=== PATIENT | female | born 1965 | race Caucasian/White ===

== ENCOUNTER 2017-12-21 13:49 | Outpatient (CLI) | payer OTHER | END 2017-12-21 13:50 | disposition home or self-care (01) | LOC: BICRAD 13:49 | PROVIDERS: ATTEND Physician Assistant | DX: M54.9 Dorsalgia, unspecified (principal); M47.894 Other spondylosis, thoracic region; M46.86 Other specified inflammatory spondylopathies, lumbar region; W19.XXXA Unspecified fall, initial encounter | CPT/HCPCS: 72050; 72070; 72100 ==

== ENCOUNTER 2018-06-11 16:10 | Inpatient (IN) | payer SELFPAY ==
--- NOTE | 2018-06-11 17:00 | RAD ---
UPRIGHT PORTABLE CHEST ONE VIEW: 06/11/18 HISTORY: 53-year-old female with history of sepsis and altered mental status. COMPARISON: 06/08/18. FINDINGS: Surgical clips in the left axilla. Monitor leads overlie the chest. Heart size is normal. The lungs a re clear. IMPRESSION: No acute intrathoracic disease. POS: [facility]
[2018-06-11 17:41] LABS: Base Excess-Venous -1.8 mmol/L (0 (+/- 2.5)); Bicarbonate (HCO3v) 22.2 mmol/L (1.0-85.0); CO2 Tension (PvCO2) 34.8 mmHg (41.0-51.0); Calcium, Ionized 1.17 mmol/L (1.12-1.32); Hemoglobin - Calc 13.6 g/dL (12.0-18.0); O2 Tension (PvO2) 96.4 mmHg (35.0-45.0); T. Carbon Dioxide 23.3 mmol/L (1.0-85.0); pH (Venous) 7.412 (7.35-7.45); vO2 Saturation-calc 97.6 % (94-98)
[2018-06-11 17:46] LABS: Anion Gap 16 mmol/L (10-20); BUN (Urea Nitrogen) 14 mg/dL (9.8-20.1); Calc. Creatinine Clearance 0 mL/min (70-130); Calcium 9.2 mg/dL (7.8-10.44); Carbon Dioxide 21 mmol/L (22-29); Chloride 108 mmol/L (98-107); Estimated GFR-MDRD 76; Glucose 176 mg/dL (70-105); Magnesium 2.4 mg/dL (1.6-2.6); Phosphorus 2.9 mg/dL (2.3-4.7); Sodium 141 mmol/L (136-145)
[2018-06-11 17:49] LABS: Acetaminophen Less than 6.0 mcg/mL (10.0-30.0); Alcohol Less than 10 mg/dL (Less than 10); Salicylate Less than 8.0 mg/dL (15.0-30.0)
[2018-06-11 17:54] LABS: CKMB 0.7 ng/mL (0-6.6); Troponin I Less than 0.010 ng/mL (< 0.028)
[2018-06-11] MEDS ORDERED: Lorazepam 2 MG/ML VIAL ONE (18:24)
[2018-06-11 19:07] LABS: Color Of CSF Supernatant COLORLESS (Colorless); Tube # 2; Unspun CSF Color PINK (Colorless)
[2018-06-11 19:10] LABS: CSF Source CSF; Clarity Hazy (Clear); RBC Count - Manual 980 /cumm (None Seen); Tube # 4; WBC/NonHematics Count - Manual 3 /cumm (0-5)
[2018-06-11 19:20] LABS: CSF, Glucose 130 mg/dl (40-70); CSF, Protein 27 mg/dL (15-40)
[2018-06-11 19:31] LABS: CSF Source CSF; Clarity Hazy (Clear); RBC Count - Manual 2725 /cumm (None Seen); Tube # 1; WBC/NonHematics Count - Manual 3 /cumm (0-5)
[2018-06-11 21:21] LABS: Troponin I Less than 0.010 ng/mL (< 0.028)
[2018-06-11] MEDS ORDERED: Fleet Enema 133 ML BOT PR PRN (23:47)
[2018-06-11] MEDS ORDERED: Bisacodyl 5 MG TAB PO PRN (23:47)
[2018-06-11] MEDS ORDERED: Acetaminophen 325 MG TAB PO PRN (23:47)
[2018-06-11] MEDS ORDERED: Ondansetron HCl/PF 4 MG/2 ML Vial IVP PRN (23:47)
[2018-06-11] MEDS ORDERED: Senokot 8.6 MG TAB PO PRN (23:47)
[2018-06-11] MEDS ORDERED: HYDROcodone/Acetaminophen 5/325 mg Tablet PO PRN (23:47)
[2018-06-11] MEDS ORDERED: Dextrose 5% in Water 1,000 ML IV PRN (23:52)
[2018-06-11] MEDS ORDERED: HumaLOG 300 UNITS/3 ML VIAL SC PRN (23:52)
[2018-06-11] MEDS ORDERED: Dextrose 50% Abboject 50 ML SYRINGE SLOW IVP PRN (23:52)
[2018-06-11 23:59] LABS: Troponin I Less than 0.010 ng/mL (< 0.028)
[2018-06-12] MEDS ORDERED: Ampicillin 125 MG/5 ML VIAL SLOW IVP SCH (00:15)
[2018-06-12 01:19] VITALS: BMI 32.2
[2018-06-12] MEDS ORDERED: cefTRIAXone\\ROCEPHIN 2 GM in Sodium Chloride 0.9% 100 ML IVPB SCH (02:00)
[2018-06-12] MEDS: Ampicillin 2 GM in Sodium Chloride 0.9% 100 ML IVPB SCH ×6 (02:31→20:48)
[2018-06-12] MEDS: Sodium Chloride 0.9% 1,000 ML IV SCH ×2 (02:32→11:29)
[2018-06-12 02:48] LABS: Troponin I Less than 0.010 ng/mL (< 0.028)
[2018-06-12 06:11] LABS: ALT (SGPT) 8 U/L (8-55); AST (SGOT) 7 U/L (5-34); Alkaline Phosphatase 64 U/L (40-150); Anion Gap 15 mmol/L (10-20); BUN (Urea Nitrogen) 14 mg/dL (9.8-20.1); Bilirubin, Total 0.3 mg/dL (0.2-1.2); Calc. Creatinine Clearance 120 mL/min (70-130); Carbon Dioxide 21 mmol/L (22-29); Chloride 108 mmol/L (98-107); Estimated GFR-MDRD 80; Globulin 2.5 g/dL (2.4-3.5); Glucose 124 mg/dL (70-105); Potassium 3.3 mmol/L (3.5-5.1); Protein, Total 6.5 g/dL (6.0-8.3); Sodium 141 mmol/L (136-145)
[2018-06-12] MEDS: cefTRIAXone\\ROCEPHIN 2 GM in Sodium Chloride 0.9% 100 ML IVPB SCH ×3 (06:24→20:47)
[2018-06-12 06:31] LABS: #Eosinphils 0.1 thou/uL (0.0-0.7); #Lymphocytes 2.4 thou/uL (1.20-3.40); #Monocytes 0.4 thou/uL (0.11-0.59); #Neutrophils 5.1 thou/uL (1.40-6.50); %Basophils 0.4 % (0.0-1.0); %Eosinophils 0.9 % (0.0-10.0); %Lymphocytes 29.5 % (21.0-51.0); %Monocytes 5.3 % (0.0-10.0); %Neutrophils 63.8 % (42.0-75.0); Mean Corpuscular HGB CONC 34.7 g/dL (32.0-36.0); Mean Corpuscular Hemoglobin 30.9 pg (27.0-31.0); Mean Platelet Volume 6.3 fL (7.4-10.4); Platelet Count 210 thou/uL (130-400); RBC Distribution Width 12.2 % (11.5-14.5); Red Blood Cell (RBC) Count 3.89 mill/uL (4.20-5.40)
--- NOTE | 2018-06-12 08:07 | PDOC.EVN ---
Event Note - Event Note Event Note: h&p [id number]
--- NOTE | 2018-06-12 08:55 | HP ---
DATE OF ADMISSION: 06/11/2018 PRIMARY CARE PHYSICIAN: The patient does not have a PCP. CHIEF COMPLAINT: Decreased mental status. HISTORY OF PRESENT ILLNESS: This is a 53-year-old female with a known history of cataracts, hysterectomy, breast cancer, who presented initially with a chief complaint of altered mental status. Please note that the patient was brought in by her family initially to [facility]. At the time of my evaluation in our emergency department, the patient's mentation has actually improved and she is able to give a different history of present illness from that for which she was brought in for. It appears that the patient was initially brought in for decreased mental status and obtundation. At the time of my evaluation, the patient states that she has been having intermittent episodes of syncope over the last 5 days. She has also been complaining of a headache described as a front to back throbbing headache without any photophobia, but with some floaters are noted in her vision. She has been noticing some belly distention, lightheadedness, blurred vision, and discomfort in her left chest wall like she was "punched." She also endorses tenderness throughout her anterior chest wall and abdomen. REVIEW OF SYSTEMS: As per HPI. Constitutional: Subjective fevers and chills. No significant weight loss or gain. HEENT: Blurred vision as noted above. Lightheadedness and syncopal episodes over the last 5 days, described as feeling like she is about to black out with some possible episodes of blacking out. Cardiovascular: As per above. Respiratory: Denies any shortness of breath, cough, congestion, upper respiratory infection. Gastrointestinal: No nausea, no vomiting. Abdominal pain is generalized and it occurs only with pressure to her abdomen. Genitourinary: Denies any dysuria, changes in urinary frequency, quality, or quantity. Musculoskeletal: Generalized chronic back pain, but without any new arthralgias or myalgias. PAST MEDICAL HISTORY: As per above, significant for type 2 diabetes, hypothyroidism, hyperlipidemia, hypertension, breast cancer status post bilateral mastectomy, ankylosing spondylitis, chronic back pain, chronic fractures to her back including the lumbar spine and sacrum. PAST SURGICAL HISTORY: 1. Status post hysterectomy. 2. Status post bilateral cataract surgery. HOME MEDICATIONS: Please see the EMR for full details. The patient's list currently includes the following docusate 1 cap p.o. b.i.d., metformin 500 mg p.o. b.i.d., pravastatin 80 mg p.o. at bedtime, nortriptyline 50 mg p.o. at bedtime, prednisone 50 mg p.o. q.a.m., aspirin 81 mg p.o. q.a.m., levothyroxine 100 mcg p.o. daily, lisinopril 10 mg p.o. q.a.m., gabapentin 2 caps p.o. in the evening and 1 cap p.o. q.a.m. ALLERGIES: Include BEE VENOM PROTEIN and IODINE. FAMILY HISTORY: The patient does not endorse a known family history of neurological disease. SOCIAL HISTORY: Patient denies any alcohol, tobacco or illicit drug use. However, the patient does have a UDS that is positive for THC. 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 There are no other individuals in the home. Patient has an outdoor dog and cat that have not been ill recently. PHYSICAL EXAMINATION: VITAL SIGNS: Stable. Temperature of 98.6, respirations of 18, satting 98% on room air, heart rate of 80, blood pressure 135/68. GENERAL: The patient is awake, conversant, in no acute distress, lying in the hospital bed. She has a marginal historian who gives a very disjointed history as noted above. HEENT: Normocephalic, atraumatic. Equal ocular motions are intact. Slightly dry mucous membranes. CARDIOVASCULAR: S1, S2. No murmurs, rubs, or gallops. Pulses 2+ bilateral upper extremities, no pitting pedal edema. RESPIRATORY: Reasonable air movement. No conversational dyspnea. No wheezes, rales, or rhonchi. Marginal air movement grossly clear to auscultation bilaterally. ABDOMEN: Positive bowel sounds, soft, nontender to palpation. MUSCULOSKELETAL: Able to move all 4 extremities. IMAGING: On 06/11/2018, chest x-ray impression: "No acute intrathoracic disease." LABORATORY DATA: WBC 8.0, hemoglobin 12.0, hematocrit 34.6, platelets 210. Sodium 141, potassium 4.0, chloride 108, bicarbonate 21, BUN 14, creatinine 0.79 , glucose 176. Lactic acid 2.4. Initially, calcium 9.2, phosphorus 2.9, magnesium 2.4, ammonia 31. Troponin less than 0.01. TSH 1.3451. Lumbar puncture CSF color is pink, 3 WBCs, 2725 RBCs, 130 of glucose, 27 of protein. Toxicology negative for salicylates, acetaminophen, or alcohol. ASSESSMENT AND PLAN: This is a 53-year-old female presenting with a chief complaint of altered mental status. Unfortunately, the patient is a very poor historian. It is difficult to actually elucidate what her active issues are. Presumably her mentation and her disjointed history giving are new in part of her complaint of altered mental status. It appears that there is concern for possibility of meningitis in an outlying facility, as the patient was started on vancomycin and Rocephin for this. At this point in time, I have difficulty completely ruling this out. We will continue on empiric antibiotics. I do not know if her lumbar puncture was completed prior to or after administration of antibiotics. We will await her lumbar puncture culture results. Patient's mentation does appear to be somewhat better compared to prior description and her actual presentation in our hospital. In addition for further evaluation, we will obtain an MRI of the brain without contrast as well for further evaluation of the patient's mentation. Complaint of syncope. Please see the discussion above. We will also check orthostatic vital signs. Check echocardiogram, bilateral carotid Dopplers as well. Tenderness to palpation across the chest wall and abdominal wall. CT of the abdomen and pelvis to further differentiate if there is any underlying structural etiology for the pain and discomfort. It is not clear why this is ongoing. Recommend checking a CRP and ESR as well for consideration of inflammatory processes such as myositis type syndrome. Type 2 diabetes. Continue to monitor the patient's glucose. Sliding scale insulin if needed. Hypothyroidism. Continue with thyroid replacement therapy. Hyperlipidemia, stable. Continue the patient on home statin. Hypertension, stable. Continue the patient on her home antihypertensive regimen. Ankylosing spondylitis with chronic back pain, lumbar spinal fracture and sacral fracture and chronic arthritis: Continue the patient on her home pain management regimen. Diet: As tolerated. Activity: As tolerated. Deep venous thrombosis prophylaxis with enoxaparin. MTDD
[2018-06-12] MEDS: Enoxaparin Sodium 30 MG/0.3 ML SYRINGE SC SCH (09:40)
[2018-06-12] MEDS: Famotidine/PF 20 mg/2ml Vial SLOW IVP SCH ×2 (09:40→20:48)
[2018-06-12] MEDS: Docusate 100 MG CAP PO SCH ×2 (09:40→20:48)
--- NOTE | 2018-06-12 10:07 | ULT ---
BILATERAL CAROTID DUPLEX ULTRASOUND: HISTORY: Syncope. TECHNIQUE: Hendricks scale ultrasound with color flow and spectral Doppler imaging of the extracranial carotid artery systems was performed bilaterally. FINDINGS: There is plaque formation on the right. The peak systolic velocity in the right ICA measures 103 cm/s with an end-diastolic velocity of 33 cm /s and a systolic ratio of 1.16. The peak systolic velocity in the left ICA measures 95 cm/s with an end-diastolic velocity of 30 cm/s and a systolic ratio of 1.07. Flow in both vertebral arteries remains antegrade. IMPRESSION: No evidence of hemodynamically significant stenosis. POS: [facility]
[2018-06-12 10:15] LABS: Bacteria/HPF None Seen HPF (None Seen); Hyaline Casts/LPF 0-3 HYALINE CAST LPF (0-3 Hyaline); Pathc Cast-AUWi Flag 0.14 (0-2.49); Squamous Epithelial None Seen HPF (0-3)
--- NOTE | 2018-06-12 12:41 | PDOC.PN ---
- Subjective Encounter Start Date: 06/12/18 Encounter Start Time: 12:39 Ms. Bryant was seen today in follow-up. she is awake and alert. She knows she is in the hospital and why. She was not able to tell me the year month or date but says " it's hot". Strangely she was able to correct her however, when he was going over the details of her recent admission. She interrupted and said she had a Steroid shot at the [facility]. - Objective Resuscitation Status: Resuscitation Status FULL:Full Resuscitation MAR Reviewed: Yes Vital Signs & Weight: Vital Signs (12 hours) Temp Pulse Resp BP Pulse Ox 06/12/18 11:21 98.5 F 84 20 140/71 96 06/12/18 07:55 98.9 F 83 20 131/64 99 06/12/18 04:00 98.6 F 80 18 135/68 98 Weight Weight 193 lb 9.6 oz I&O: 06/11/18 06/12/18 06/13/18 06:59 06:59 06:59 Intake Total 950 Output Total 650 Balance 300 Result Diagrams: 06/12/18 02:14 06/12/18 02:14 Additional Labs: Accuchecks 06/12/18 06/11/18 06:38 16:27 POC Glucose 107 197 H Phys Exam - Physical Examination HEENT: PERRLA Respiratory: no rales, no rhonchi, wheezing present + mild bilateral expiratory wheeze, Cardiovascular: RRR, no significant murmur, no rub Gastrointestinal: soft, non-tender, positive bowel sounds Musculoskeletal: no edema no rashes Dx/Plan (1) Altered mental status Code(s): R41.82 - ALTERED MENTAL STATUS, UNSPECIFIED Status: Acute (2) Hypertension Code(s): I10 - ESSENTIAL (PRIMARY) HYPERTENSION Status: Chronic (3) Diabetes mellitus type 2 in obese Code(s): E11.69 - TYPE 2 DIABETES MELLITUS WITH OTHER SPECIFIED COMPLICATION; E66.9 - OBESITY, UNSPECIFIED Status: Chronic (4) Dyslipidemia Code(s): E78.5 - HYPERLIPIDEMIA, UNSPECIFIED Status: Chronic (5) Hypothyroidism Code(s): E03.9 - HYPOTHYROIDISM, UNSPECIFIED Status: Chronic - Plan * Altered Mental status- Unknown etiology, she does not appear to be encephalopathic, she is able to converse clearly with me, but she reports memory loss. She does no at all appear to have bacterial meningitis, and cultures are negative so far. She does not have fever, or signs of meningismus. Will follow-up on the MRI results, Carotid dopplers were negative * Likely can discontinue antibiotics tomorrow. * Abdominal pain- again no clear etiology- CT scan results are pending * DM- blood glucose is stable * HTN- blood pressure is stable
--- NOTE | 2018-06-12 13:00 | CT ---
CT ABDOMEN AND PELVIS WITHOUT IV CONTRAST: Multiple axial tomograms obtained through the abdomen and pelvis without IV enhancement. Oral contra st was administered. INDICATION: Abdominal pain. FINDINGS: The lung bases are clear. Liver and spleen unremarkable. The spleen size is upper normal measured at 13 cm. Pancreas unremarkable. Adrenal glands normal. Kidneys unremarkable. No hydronephrosis or urinary tract calculus. The urinary bladder is contracte d and there is a Boss catheter in place. Small bowel loops are unremarkable. No evidence of small bowel dilatation or obstruction. Appendix is not identified. Stool and gas throughout the colon. Aorta is normal caliber. No adenopathy. IMPRESSION: 1. Borderline splenomegaly. 2. Prominent stool throughout the colon could represent constipation. 3. No acute process identified. POS: [facility]
--- NOTE | 2018-06-12 15:04 | MRI ---
MRI BRAIN WITHOUT CONTRAST: HISTORY: TIA, syncope. FINDINGS: Correlation is made with the CT brain of the previous day. FINDINGS: No restricted diffusion is seen. No evidence of infarct, hemorrhage, midline shift, or abnormal extr aaxial fluid collections is seen. The ventricular size is normal and the basilar cisterns patent. T here is mucosal disease in the paranasal sinuses. IMPRESSION: No evidence of acute intracranial process. POS: [facility]
[2018-06-13] MEDS: Ampicillin 2 GM in Sodium Chloride 0.9% 100 ML IVPB SCH ×3 (00:46→10:20)
[2018-06-13] MEDS: Sodium Chloride 0.9% 1,000 ML IV SCH ×2 (00:51→05:40)
[2018-06-13 05:46] LABS: #Eosinphils 0.4 thou/uL (0.0-0.7); #Lymphocytes 1.6 thou/uL (1.20-3.40); #Monocytes 0.4 thou/uL (0.11-0.59); #Neutrophils 3.9 thou/uL (1.40-6.50); %Basophils 0.6 % (0.0-1.0); %Eosinophils 6.3 % (0.0-10.0); %Lymphocytes 25.5 % (21.0-51.0); %Monocytes 5.7 % (0.0-10.0); Hemoglobin 12.2 g/dL (12.0-16.0); Mean Corpuscular HGB CONC 35.1 g/dL (32.0-36.0); Mean Corpuscular Hemoglobin 31.2 pg (27.0-31.0); Mean Corpuscular Volume 88.7 fL (78.0-98.0); Mean Platelet Volume 5.8 fL (7.4-10.4); Platelet Count 181 thou/uL (130-400); White Blood Cell (WBC) Count 6.4 thou/uL (4.8-10.8)
[2018-06-13 06:07] LABS: ALT (SGPT) 10 U/L (8-55); AST (SGOT) 8 U/L (5-34); Albumin 3.6 g/dL (3.5-5.0); Alkaline Phosphatase 62 U/L (40-150); Anion Gap 13 mmol/L (10-20); BUN (Urea Nitrogen) 7 mg/dL (9.8-20.1); Bilirubin, Total 0.3 mg/dL (0.2-1.2); Calc. Creatinine Clearance 118 mL/min (70-130); Calcium 8.3 mg/dL (7.8-10.44); Carbon Dioxide 24 mmol/L (22-29); Chloride 109 mmol/L (98-107); Estimated GFR-MDRD 79; Globulin 2.4 g/dL (2.4-3.5); Glucose 120 mg/dL (70-105); Potassium 3.6 mmol/L (3.5-5.1); Sodium 142 mmol/L (136-145)
[2018-06-13] MEDS: Enoxaparin Sodium 30 MG/0.3 ML SYRINGE SC SCH (08:58)
[2018-06-13] MEDS: cefTRIAXone\\ROCEPHIN 2 GM in Sodium Chloride 0.9% 100 ML IVPB SCH (08:58)
[2018-06-13] MEDS: Famotidine/PF 20 mg/2ml Vial SLOW IVP SCH (08:58)
[2018-06-13] MEDS: Docusate 100 MG CAP PO SCH (08:58)
--- NOTE | 2018-06-13 11:09 | PDOC.PN ---
- Subjective Encounter Start Date: 06/13/18 Encounter Start Time: 11:08 Ms. Bryant was seen today in follow-up. She is back to her baseline. She walked in the halls without any difficulty. - Objective Resuscitation Status: Resuscitation Status FULL:Full Resuscitation MAR Reviewed: Yes Vital Signs & Weight: Vital Signs (12 hours) Temp Pulse Resp BP BP Pulse Ox 06/13/18 08:58 99.5 F 73 20 98 06/13/18 07:48 99.5 F 73 20 170/72 H 98 06/13/18 03:48 98.4 F 77 16 137/66 99 06/12/18 23:43 98.6 F 78 16 152/72 H 97 Weight Admit Weight 193 lb 9.6 oz Weight 193 lb 9.6 oz I&O: 06/12/18 06/13/18 06/14/18 06:59 06:59 06:59 Intake Total 3541 Output Total 4400 Balance -859 Result Diagrams: 06/13/18 04:52 06/13/18 04:52 Additional Labs: Accuchecks 06/13/18 05:24 POC Glucose 129 H Phys Exam - Physical Examination HEENT: PERRLA Respiratory: no wheezing, no rales, no rhonchi, clear to auscultation bilateral Cardiovascular: RRR, no significant murmur, no rub Gastrointestinal: soft, non-tender, positive bowel sounds Musculoskeletal: no edema Dx/Plan (1) Altered mental status Code(s): R41.82 - ALTERED MENTAL STATUS, UNSPECIFIED Status: Acute (2) Hypertension Code(s): I10 - ESSENTIAL (PRIMARY) HYPERTENSION Status: Chronic (3) Diabetes mellitus type 2 in obese Code(s): E11.69 - TYPE 2 DIABETES MELLITUS WITH OTHER SPECIFIED COMPLICATION; E66.9 - OBESITY, UNSPECIFIED Status: Chronic (4) Dyslipidemia Code(s): E78.5 - HYPERLIPIDEMIA, UNSPECIFIED Status: Chronic (5) Hypothyroidism Code(s): E03.9 - HYPOTHYROIDISM, UNSPECIFIED Status: Chronic - Plan * Altered mental status- ? etiology * MRI, Echo, and CT abdomen are all essentially negative * Stable for discharge home.
[2018-06-13 12:07] VITALS: TEMP 99
[2018-06-13 12:11] VITALS: BP 182/86
--- NOTE | 2018-06-13 17:50 | DIS ---
DATE OF ADMISSION: 06/11/2018 DATE OF DISCHARGE: 06/13/2018 DISCHARGE DISPOSITION: Home. PRIMARY DISCHARGE DIAGNOSES: 1. Altered mental status, unknown etiology. 2. Diabetes mellitus, type 2. 3. Hypothyroidism. 4. Hypertension. 5. Dyslipidemia. 6. History of breast cancer status post mastectomy. 7. History of chronic low back pain. DISCHARGE MEDICATIONS: These are the same as that on admission and include pravastatin 80 mg at bedt sherwin, nortriptyline 50 mg at bedtime, metformin 500 mg twice a day, lisinopril 10 mg daily, levothyrox ine 100 mcg daily, Neurontin 100 mg in the morning and 2 in the evening, Colace 100 mg twice a day, a spirin 81 mg daily. PROCEDURES DONE DURING ADMISSION: The patient had an MRI of the brain which was negative for any acu te intracranial process. The patient had a CT scan of the abdomen and pelvis in which there was some borderline splenomegaly. There was prominent stool throughout the colon, which could be representat torrey of constipation, but no acute process was identified. She had bilateral carotid Dopplers, which were negative for any significant stenosis. She had an echocardiogram which the ejection fraction wa s estimated at 60%-65%, the left atrium was mildly dilated, some mild regurgitation in the mitral and tricuspid valves otherwise normal. CODE STATUS: FULL CODE. ALLERGIES: BEE VENOM and IODINE. HOSPITAL COURSE: Ms. Bryant is a pleasant 53-year-old female that presented to the hospital with alte red mental status. It appears that she had a waxing and waning confusion over the course of the last week. The full details of which are outlined in history and physical. The patient's who ga ve the history stated that it seemed to have happened after she had got stung by a bee and had given herself an EpiPen on past Thursday and then Thursday she had the start of this confusion. What was odd i s that in the room when I spoke with the patient, she initially stated she did not have much memory o f the event, but she was curious that as the was explaining things she would jump in and torri ect him on certain events. The following day she was completely back to baseline, ambulating in the halls without difficulty. She has been afebrile. She had had a lumbar puncture which was not consis tent with meningitis and her symptoms are also not consistent with meningitis. The culture was negat torrey at 24 hours. Therefore, she will be discharged home to have close followup in the outpatient set ting and monitor her for any recurrent trend.
== END 2018-06-13 12:27 | disposition home or self-care (01) | DRG 948 ==
LOC: ERS 16:10 → ERHOLD 20:47 → 2SE 06-12 00:03
PROVIDERS: ADMIT Internal Medicine; ATTEND Internal Medicine
PROC: 00JU3ZZ Inspection of Spinal Canal, Percutaneous Approach (ICD-10-PCS; principal; 2018-06-11)
DX: R41.82 Altered mental status, unspecified (principal); H26.9 Unspecified cataract; Z85.3 Personal history of malignant neoplasm of breast; E11.9 Type 2 diabetes mellitus without complications; E03.9 Hypothyroidism, unspecified; E78.5 Hyperlipidemia, unspecified; I10 Essential (primary) hypertension; G89.29 Other chronic pain; M54.9 Dorsalgia, unspecified; M19.90 Unspecified osteoarthritis, unspecified site
CPT/HCPCS: 36415; 36416; 62270; 70551; 71045; 74176; 80053; 80307; 81015; 82140; 82330; 82803; 82945; 83605; 83735; 84100; 84157; 84443; 85025; 86612; 86635; 86698; 86757; 87070; 87205; 87255; 89051; 93005; 93306; 93880; 96361; 96374; A4216; G8978-GP-CL; G8979-GP-CI; J0290; J0696; J1650; J2060; J2405; J3370; J7050; S0028

== ENCOUNTER 2020-07-04 12:43 | Observation (INO) | payer OTHER, SELFPAY ==
[2020-07-04 15:05] VITALS: BMI 33.0
[2020-07-04 16:08] LABS: Troponin I Less than 0.010 ng/mL (< 0.028)
--- NOTE | 2020-07-04 18:42 | PDOC.HHP ---
Hospitalist HPI - History of Present Illness syncope History of Present Illness: PCP: Ambrose The patient is a 55-year-old female past medical history significant for hypertension, neuropathy, sleep apnea, hypothyroidism, hyperlipidemia, and psych issues. Patient states that 4 days ago she was stung by a wasp and was seen in the emergency room. Since that time she has had multiple syncopal episodes. She states that she does not realize they are coming on but that she will stand up and her will see her get a blank look on her face and then he helps lower her to the ground. She also claims that they last anywhere from 2 to 5 minutes and when she wakes up she is confused from the episode. She does state that he noticed some small twitching during some of the episodes. Patient has history of syncopal episodes in the past. She states that a year ago the same thing was occurring and she was diagnosed with a "psychotic seizure". She was placed on Flexeril at that time to help her sleep. Thursday she passed out once, on Thursday she passed out 3 times, on Thursday she passed out twice, and today she has passed out once. When questioned patient states that she has been under increased stress lately. She was caring for her best friend who while on her watch a few weeks ago. Patient claims she has been compliant with her medications denies chest pain, shortness of breath, bladder changes. She does state she is having diarrhea directly after eating since Thursday, denies bloody stool. Patient also endorses a headache every day since the bee sting and does have dizziness when ambulating. Patient has a history of sleep apnea but does not use home CPAP at night. She s tates she had her last sleep study many years ago and they stated she did not need a CPAP machine but prescribed her a sleep medication. She does state that some nights she will wake up gasping for air. ED Course: The patient was seen at [facility] today, she had an EKG, chest x-ray, lab work, and brain CT. She was given aspirin 324 mg. Hospitalist ROS - Review of Systems Constitutional: reports: other (headache) Respiratory: denies: shortness of breath Cardiovascular: reports: other (Syncope). denies: chest pain Gastrointestinal: reports: diarrhea All other systems reviewed; all pertinent +/- noted in HPI/Subj - Medication Medications: Allergies: Bee and wasp stings, iodine Current medications: Metformin 500 mg p.o. twice a day Pravastatin 60 mg p.o. at bedtime Lisinopril 5 mg p.o. every morning Levothyroxine 100 mcg p.o. daily Gabapentin 100 mg in the morning Gabapentin 100 mg 2 capsules at noon at 1800 Flexeril 10 mg at night Aspirin 81 mg daily Hospitalist History - Past Medical History Source: patient Cardiac: reports: HTN, Hyperlipidemia Psych: reports: Anxiety, Depression, Other (history of "psychotic seizures") Musculoskeletal: reports: Chronic low back pain Endocrine: reports: Hypothyroidism Other Medical History: neuropathy, breast cancer - Past Surgical History Past Surgical History: reports: Hysterectomy - Family History Family History: reports: cardiac disorder, hypertension - Social History Smoking Status: Never smoker Alcohol: reports: None Drugs: reports: none Living Situation: With Family Occupation: [employer] Activity level: independent ambulation - Exam General Appearance: NAD, awake alert General - other findings: VS: 98.2, P-55, 18, 100% RA, 150/66 Eye: PERRL Neck: supple, no lymphadenopathy Heart: RRR, no murmur (murmur reported, however unable to auscultate one), no gallops, no rubs Respiratory: CTAB, no wheezes, no rales, no ronchi, normal chest expansion Gastrointestinal: soft, non-tender, non-distended, normal bowel sounds Extremities: no edema Neurological: cranial nerve grossly intact, no focal deficits Psychiatric: A&O x 3 Hospitalist Results - Labs Lab results: Troponin I Less than 0.010 ng/mL (< 0.028) 07/04/20 15:32 Laboratory Tests 07/04/20 07/04/20 07/04/20 11:22 11:22 11:22 WBC 8.3 Hgb 13.3 Hct 40.4 Sodium 140 Potassium 4.1 Creatinine 0.85 Estimated GFR (MDRD) 70 Glucose 136 H Troponin I Less than 0.010 07/04/20 15:32 WBC Hgb Hct Sodium Potassium Creatinine Estimated GFR (MDRD) Glucose Troponin I Less than 0.010 - EKG Interpretation EKG: NSR 65 - Radiology Interpretation Chest x-ray Status: image reviewed by me, report reviewed by me Additional Comment: No acute cardiopulmonary process. CT scan - head Status: report reviewed by me Additional Comment: No acute intracranial process. Hospitalist H&P A/P - Problem (1) Syncopal episodes Code(s): R55 - SYNCOPE AND COLLAPSE Status: Acute (2) Hypertension Code(s): I10 - ESSENTIAL (PRIMARY) HYPERTENSION Status: Chronic (3) Depression Code(s): F32.9 - MAJOR DEPRESSIVE DISORDER, SINGLE EPISODE, UNSPECIFIED Status: Chronic - Plan Plan: Multiple syncopal episodes Echo to be completed in a.m. Orthostatics to be obtained IV fluids UDS Hypertension Restart home medications when reconciled Monitor vital signs every 4 hours Depression and chronic pain Can restart home medications slowly, daughter put her at a higher risk for more syncopal episodes or falls GI and VTE prophylaxis in place CODE STATUS: Chemical code only Surrogate decision-maker: , Juan Bryant Discussed patient with Dr. Juarez
[2020-07-04] MEDS: Acetaminophen 325 MG TAB PO PRN (18:49)
[2020-07-04 19:14] LABS: Troponin I 0.016 ng/mL (< 0.028)
[2020-07-04] MEDS: Sodium Chloride 0.9% 1,000 ML IV SCH (20:29)
[2020-07-04] MEDS: Famotidine 20 MG TAB PO SCH (20:30)
[2020-07-04 22:06] LABS: Amphetamine Not Detected (NotDetected); Barbiturates Screen Not Detected (NotDetected); Benzodiazepine Screen Not Detected (NotDetected); Cocaine Metabolite Screen Not Detected (NotDetected); Medtox Control Line Valid? VALID (VALID); Medtox Reader # READER 1; Methadone Not Detected (NotDetected); Methamphetamine Not Detected (NotDetected); Opiate Screen Not Detected (NotDetected); Oxycodone Screen Not Detected (NotDetected); Phencyclidine (PCP) Not Detected (NotDetected); THC/Cannabinoid Screen Detected (NotDetected); Tricyclic Screen Not Detected (NotDetected)
[2020-07-05 04:41] LABS: #Eosinphils 0.2 thou/uL (0.0-0.7); #Lymphocytes 2.7 thou/uL (1.20-3.40); #Monocytes 0.3 thou/uL (0.11-0.59); #Neutrophils 2.5 thou/uL (1.40-6.50); %Basophils 0.8 % (0.0-1.0); %Eosinophils 2.8 % (0.0-10.0); %Lymphocytes 47.5 % (21.0-51.0); %Monocytes 5.1 % (0.0-10.0); %Neutrophils 43.8 % (42.0-75.0); Hemoglobin 12.5 g/dL (12.0-16.0); Mean Corpuscular Hemoglobin 30.7 pg (27.0-31.0); Mean Corpuscular Volume 90.1 fL (78.0-98.0); Platelet Count 209 thou/uL (130-400); RBC Distribution Width 12.3 % (11.5-14.5); Red Blood Cell (RBC) Count 4.08 mill/uL (4.20-5.40); White Blood Cell (WBC) Count 5.6 thou/uL (4.8-10.8)
[2020-07-05 05:01] LABS: Anion Gap 13 mmol/L (10-20); BUN (Urea Nitrogen) 10 mg/dL (9.8-20.1); Calc. Creatinine Clearance 105 mL/min (70-130); Calcium 8.3 mg/dL (7.8-10.44); Carbon Dioxide 24 mmol/L (22-29); Chloride 109 mmol/L (98-107); Estimated GFR-MDRD 73; Glucose 124 mg/dL (70-105); Potassium 4.4 mmol/L (3.5-5.1); Sodium 142 mmol/L (136-145)
[2020-07-05] MEDS: Sodium Chloride 0.9% 1,000 ML IV SCH ×2 (06:14→19:50)
[2020-07-05] MEDS: Aspirin 81 mg Enteric Coated Tablet PO SCH (09:24)
[2020-07-05] MEDS: Gabapentin 100 MG CAP PO SCH ×3 (09:24→18:39)
[2020-07-05] MEDS: Lisinopril 10 MG TAB PO SCH (09:24)
[2020-07-05] MEDS: metFORMIN 500 MG TAB PO SCH ×2 (09:24→17:43)
[2020-07-05] MEDS: Famotidine 20 MG TAB PO SCH ×2 (09:24→19:52)
[2020-07-05 12:16] LABS: SARS-CoV-2 MS2 Positive; SARS-CoV-2 N Gene Negative; SARS-CoV-2 S Gene Negative; SARS-CoV-2 by NAA Not Detected (NotDetected); SARS-CoV-2 orf1ab Negative
--- NOTE | 2020-07-05 12:50 | MRI ---
MRI BRAIN WITHOUT CONTRAST: HISTORY: Seizure, syncope COMPARISON: 06/12/2018 CORRELATION: CT scan from 07/04/2020. FINDINGS: No restricted diffusion is seen. The ventricular size is appropriate and the basilar cisterns are pat ent. No evidence of acute infarct, hemorrhage, midline shift or abnormal extra-axial fluid collections is seen. The visualized paranasal sinuses are well aerated. There is a tiny amount of fluid in the right masto id air cells. IMPRESSION: No evidence of acute intracranial process.
--- NOTE | 2020-07-05 16:34 | CT ---
Exam: Head CT without contrast HISTORY: Positive loss of consciousness. Patient fell in room and hit back of head, on seen COMPARISON: 07/04/2020 at 11:44 AM FINDINGS: Hemorrhage: No intraparenchymal hemorrhage or extra-axial hematoma. Brain parenchyma: Cortical sun-white matter differentiation is preserved. No mass effect or midline shift. Basilar cisterns are patent. Ventricular system: Ventricles and sulci are patent and symmetric. Calvarium: Intact. Sinuses and mastoid air cells: Adequate aeration. IMPRESSION: No intracranial post traumatic sequelae.
--- NOTE | 2020-07-05 17:42 | CON ---
NEUROLOGY CONSULTATION DATE OF CONSULTATION: 07/05/2020 REASON FOR CONSULTATION: Episode of loss of consciousness. HISTORY OF PRESENT ILLNESS: Ms. Bryant is a 55-year-old female with medical history significant for hypertension, neuropathy, sleep apnea, hypothyroidism, hyperlipidemia, and psychogenic nonepileptic spells diagnosed at [facility] last year presented with an episode of loss of consciousness with some shaking and confusion. Per patient, four days ago, she was stung by a wasp and was seen in the emergency room. Since then, she has multiple episodes of loss of consciousness. One episode was witnessed by her during which she had a blank look on her face and he tried to help her to the ground and the episode lasted for 2 to 5 minutes and she was extremely confused after the episode. She did have some twitching during these episodes. She does have history of syncopal episodes in the past. Last year, she was diagnosed with psychogenic nonepileptic seizures in [facility] and was started on some medication which did not help. She was told that these episodes occurred due to stress. Per patient, she had been on the increased amount of stress lately and she believed that this had triggered her events again. She was caring for a best friend who two weeks ago. The patient has been compliant with the medications. The patient denies nausea, vomiting, headache, chest pain, abdominal pain, recent illness or recent exposure to COVID, focal weakness, focal paresthesias or body movements. She denies family history of epilepsy or history of seizures as a child. In the emergency room, she was given aspirin and admitted for further workup. REVIEW OF SYSTEMS: All 14 systems were reviewed and were negative except the pertinent positive and negative mentioned in the HPI. ALLERGIES: BEE AND WASP STINGS, IODINE. CURRENT MEDICATIONS: 1. Metformin 500 mg twice daily. 2. Lisinopril 5 mg every morning. 3. Levothyroxine 100 mcg p.o. daily. 4. Gabapentin 100 mg in the morning and 200 mg at noon. 5. Flexeril 10 mg at night. 6. Aspirin 81 mg daily. - Objective Vital Signs & Weight: Vital Signs (12 hours) Temp Pulse Resp BP BP Pulse Ox 07/05/20 16:36 97.8 F 81 19 151/69 H 97 07/05/20 11:56 97.9 F 65 18 161/76 H 97 07/05/20 08:55 71 09/17/20 08:00 98.0 F 114 H 20 139/67 99 Weight Weight 186 lb 11.2 oz I&O: 07/04/20 07/05/20 07/06/20 06:59 06:59 06:59 Intake Total 1332 Output Total 1000 Balance 332 Active Medications Generic Name Dose Route Start Last Admin Trade Name Freq PRN Reason Stop Dose Admin Acetaminophen 650 mg 07/04/20 17:58 07/05/20 17:43 Acetaminophen 325 Mg Tab PO 650 mg Q4H PRN Administration Headache/Fever/Mild Pain (1-3) Aspirin 81 mg 07/05/20 09:00 07/05/20 09:24 Aspirin 81 Mg Enteric Coated Tablet PO 81 mg DAILY IBETH Administration Famotidine 20 mg 07/04/20 21:00 07/05/20 09:24 Famotidine 20 Mg Tab PO 20 mg BID IBETH Administration Gabapentin 100 mg 07/05/20 09:00 07/05/20 09:24 Gabapentin 100 Mg Cap PO 100 mg QAM IBETH Administration Gabapentin 200 mg 07/05/20 12:00 07/05/20 13:00 Gabapentin 100 Mg Cap PO 200 mg 1200,1800 IBETH Administration Sodium Chloride 1,000 mls @ 100 mls/hr 07/04/20 17:45 07/05/20 06:14 Normal Saline 0.9% IV 1,000 mls .Q10H IBETH Administration Lisinopril 5 mg 07/05/20 09:00 07/05/20 09:24 Lisinopril 10 Mg Tab PO 5 mg QAM IBETH Administration Metformin HCl 500 mg 07/05/20 08:00 07/05/20 17:43 Metformin 500 Mg Tab PO 500 mg BID-WM IBETH Administration PAST MEDICAL HISTORY: Hypertension, hyperlipidemia, anxiety, depression, psychogenic nonepileptic seizures, hypothyroidism, neuropathy, breast cancer. PAST SURGICAL HISTORY: Hysterectomy. FAMILY HISTORY: Coronary artery disease, hypertension. SOCIAL HISTORY: . Lives with her . Denies smoking, alcohol, illegal drug use. - Exam General Appearance: NAD, awake alert VS: 98.2, P-55, 18, 100% RA, 150/66 Eye: PERRL Neck: supple, no lymphadenopathy Heart: RRR, no murmur (murmur reported, however unable to auscultate one), no gallops, no rubs Respiratory: CTAB, no wheezes, no rales, no ronchi, normal chest expansion Gastrointestinal: soft, non-tender, non-distended, normal bowel sounds Extremities: no edema Neurological: Mental status, the patient is alert and oriented to person, place, and time. Speech is clear. Recent and remote memory intact. Fund of knowledge is appropriate. Cranial nerves 2 through 12 intact. Motor; muscle, tone, and bulk are normal. Strength 5/5 bilaterally. Sensory intact. Cerebellar, finger-nose testing intact. Gait deferred due to the patient's safety reason. DATA REVIEWED: I reviewed the labs which were essentially unremarkable. EKG showed normal sinus rhythm. Head CT did not reveal any acute intracranial process. Lab results: Troponin I Less than 0.010 ng/mL (< 0.028) 07/04/20 15:32 Laboratory Tests 07/04/20 07/04/20 07/04/20 11:22 11:22 11:22 WBC 8.3 Hgb 13.3 Hct 40.4 Sodium 140 Potassium 4.1 Creatinine 0.85 Estimated GFR (MDRD) 70 Glucose 136 H Troponin I Less than 0.010 07/04/20 15:32 WBC Hgb Hct Sodium Potassium Creatinine Estimated GFR (MDRD) Glucose Troponin I Less than 0.010 - EKG Interpretation EKG: NSR 65 - Radiology Interpretation Chest x-ray Status: image reviewed by me, report reviewed by me Additional Comment: No acute cardiopulmonary process. CT scan - head Status: report reviewed by me Additional Comment: No acute intracranial process. ASSESSMENT AND PLAN: (1) Syncopal episodes Code(s): R55 - SYNCOPE AND COLLAPSE Status: Acute (2) Hypertension Code(s): I10 - ESSENTIAL (PRIMARY) HYPERTENSION Status: Chronic (3) Depression Code(s): F32.9 - MAJOR DEPRESSIVE DISORDER, SINGLE EPISODE, UNSPECIFIED Status: Chronic Ms. Bryant is a 55-year-old female, who was consulted for episodes of loss of consciousness. The patient does have prior history of psychogenic nonepileptic events and history is not significant for seizures. However, we will repeat EEG testing and MRI of the brain. If the above studies are negative, we will now start her on seizure medication based on the current information. Continue syncope workup per primary team. Continue home medications. Neuro checks every 4 hours. Continue medical management per primary team. Plan discussed in detail with the patient. Further recommendation depends on the results of the testing. Thank you for the consult. Job ID: [id number] [facility]ITALDorinda
[2020-07-05] MEDS: Acetaminophen 325 MG TAB PO PRN (17:43)
--- NOTE | 2020-07-05 18:02 | PDOC.HOSPP ---
- Subjective Encounter Date: 07/05/20 Subjective: Patient reports that she had a wasp sting 5 or 6 days ago. She subsequently had several episodes of syncope at home. She went to see her primary care provider and had a syncopal episode in her parking lot. She was subsequently sent to the emergency department. Her work-up thus far has been negative. The patient reports that several years ago she had a bee sting (not a wasp sting like on this occasion) and had similar symptoms of syncope. She said the syncope episodes made her depressed. She subsequently attempted suicide. She was apparently admitted to a psychiatric facility at that time. She was ultimately sent to [facility] in [place] and was diagnosed with "psychotic seizures". She says she was given muscle relaxers and that helped her and has k ept it under control until this occasion. Patient has had a negative work-up on this admission. The plan was to discharge her this afternoon. However, I was notified by the nurse that the patient had pulled the cord in the bathroom and when they went and she was lying on the floor. The patient tells me she does not recall anything about the event and was awakened by the nurses. Not clear how she pulled the cord. She also says she hit her head but she does not recall the fall. She said the crown of her head was sore but is not now. - Objective Vital Signs & Weight: Vital Signs (12 hours) Temp Pulse Resp BP BP Pulse Ox 07/05/20 16:36 97.8 F 81 19 151/69 H 97 07/05/20 11:56 97.9 F 65 18 161/76 H 97 07/05/20 08:55 71 07/05/20 08:00 98.0 F 114 H 20 139/67 99 Weight Weight 186 lb 11.2 oz I&O: 07/04/20 07/05/20 07/06/20 06:59 06:59 06:59 Intake Total 1332 Output Total 1000 Balance 332 Result Diagrams: 07/05/20 04:23 07/05/20 04:23 Hospitalist ROS - Medication Medications: Active Medications Generic Name Dose Route Start Last Admin Trade Name Freq PRN Reason Stop Dose Admin Acetaminophen 650 mg 07/04/20 17:58 07/05/20 17:43 Acetaminophen 325 Mg Tab PO 650 mg Q4H PRN Administration Headache/Fever/Mild Pain (1-3) Aspirin 81 mg 07/05/20 09:00 07/05/20 09:24 Aspirin 81 Mg Enteric Coated Tablet PO 81 mg DAILY IBETH Administration Famotidine 20 mg 07/04/20 21:00 07/05/20 09:24 Famotidine 20 Mg Tab PO 20 mg BID IBETH Administration Gabapentin 100 mg 07/05/20 09:00 07/05/20 09:24 Gabapentin 100 Mg Cap PO 100 mg QAM IBETH Administration Gabapentin 200 mg 07/05/20 12:00 07/05/20 13:00 Gabapentin 100 Mg Cap PO 200 mg 1200,1800 IBETH Administration Sodium Chloride 1,000 mls @ 100 mls/hr 07/04/20 17:45 07/05/20 06:14 Normal Saline 0.9% IV 1,000 mls .Q10H IBETH Administration Lisinopril 5 mg 07/05/20 09:00 07/05/20 09:24 Lisinopril 10 Mg Tab PO 5 mg QAM IBETH Administration Metformin HCl 500 mg 07/05/20 08:00 07/05/20 17:43 Metformin 500 Mg Tab PO 500 mg BID-WM IBETH Administration - Exam General Appearance: NAD, awake alert ENT: normocephalic atraumatic, no oropharyngeal lesions, moist mucosa Heart: RRR, no murmur, no gallops, no rubs, normal peripheral pulses Respiratory: CTAB, no wheezes, no rales, no ronchi, normal chest expansion, no tachypnea, normal percussion Gastrointestinal: soft, non-tender, non-distended, normal bowel sounds, no palpable masses, no hepatomegaly, no splenomegaly, no bruit Extremities: no cyanosis, no clubbing, no edema Neurological: cranial nerve grossly intact, normal sensation to touch, no weakness, no focal deficits, no new deficit Musculoskeletal: normal tone, normal strength, no muscle wasting Psychiatric: normal affect, normal behavior, A&O x 3 Hosp A/P (1) Syncopal episodes Code(s): R55 - SYNCOPE AND COLLAPSE Status: Acute (2) Psychogenic nonepileptic seizure Code(s): F44.5 - CONVERSION DISORDER WITH SEIZURES OR CONVULSIONS Status: Chronic (3) Depression Code(s): F32.9 - MAJOR DEPRESSIVE DISORDER, SINGLE EPISODE, UNSPECIFIED Status: Chronic (4) Diabetes mellitus type 2 in obese Code(s): E11.69 - TYPE 2 DIABETES MELLITUS WITH OTHER SPECIFIED COMPLICATION; E66.9 - OBESITY, UNSPECIFIED Status: Chronic (5) Dyslipidemia Code(s): E78.5 - HYPERLIPIDEMIA, UNSPECIFIED Status: Chronic (6) Hypertension Code(s): I10 - ESSENTIAL (PRIMARY) HYPERTENSION Status: Chronic (7) Hypothyroidism Code(s): E03.9 - HYPOTHYROIDISM, UNSPECIFIED Status: Chronic - Plan This patient's work-up has been negative. Her EEG showed no evidence of seizure type activity. MRI of the brain was normal. Telemetry has been normal even to the episode of syncope. After being found on the floor she had a repeat CT of the head which was unremarkable. It is unclear if she actually fell. It is not clear how she would have pulled the cord for help if events unfolded the way they are reported by her. This point will observe her overnight because of the potential fall. Anticipate discharge in the morning. Do not anticipate any new medications.
[2020-07-05] MEDS ORDERED: Cyclobenzaprine 10 MG TAB PO SCH (21:00)
[2020-07-05] MEDS ORDERED: Gabapentin 100 MG CAP PO SCH (21:00)
[2020-07-05] MEDS ORDERED: Atorvastatin Calcium 20 MG TAB PO SCH (21:00)
[2020-07-06] MEDS: Sodium Chloride 0.9% 1,000 ML IV SCH (04:43)
[2020-07-06 05:06] LABS: #Basophils 0.1 thou/uL (0.0-0.2); #Eosinphils 0.2 thou/uL (0.0-0.7); #Lymphocytes 2.6 thou/uL (1.20-3.40); #Monocytes 0.2 thou/uL (0.11-0.59); #Neutrophils 2.4 thou/uL (1.40-6.50); %Eosinophils 2.9 % (0.0-10.0); %Lymphocytes 48.3 % (21.0-51.0); %Monocytes 4.2 % (0.0-10.0); %Neutrophils 43.6 % (42.0-75.0); Hemoglobin 11.7 g/dL (12.0-16.0); Mean Corpuscular HGB CONC 33.4 g/dL (32.0-36.0); Mean Corpuscular Hemoglobin 30.1 pg (27.0-31.0); Mean Corpuscular Volume 90.1 fL (78.0-98.0); Mean Platelet Volume 6.9 fL (7.4-10.4); Platelet Count 212 thou/uL (130-400); RBC Distribution Width 12.3 % (11.5-14.5); White Blood Cell (WBC) Count 5.4 thou/uL (4.8-10.8)
[2020-07-06 05:18] LABS: Anion Gap 15 mmol/L (10-20); BUN (Urea Nitrogen) 11 mg/dL (9.8-20.1); Calc. Creatinine Clearance 107 mL/min (70-130); Carbon Dioxide 21 mmol/L (22-29); Chloride 111 mmol/L (98-107); Estimated GFR-MDRD 75; Glucose 123 mg/dL (70-105); Potassium 4.1 mmol/L (3.5-5.1); Sodium 143 mmol/L (136-145)
[2020-07-06] MEDS ORDERED: Levothyroxine Sodium 100 MCG TAB PO SCH (06:00)
[2020-07-06 08:00] VITALS: TEMP 98
[2020-07-06] MEDS: Lisinopril 10 MG TAB PO SCH (08:26)
[2020-07-06] MEDS: metFORMIN 500 MG TAB PO SCH (08:26)
[2020-07-06] MEDS: Famotidine 20 MG TAB PO SCH (08:27)
[2020-07-06] MEDS: Gabapentin 100 MG CAP PO SCH (08:28)
[2020-07-06] MEDS: Aspirin 81 mg Enteric Coated Tablet PO SCH (08:28)
--- NOTE | 2020-07-06 11:27 | EEG ---
DATE OF SERVICE: 07/05/2020 ATTENDING PHYSICIAN: Ivanna Byers MD This EEG was performed using 24-channel [employer] Video Digital EEG machine with 24-disk electrodes. This was an extended 2 hours 6 minutes of inpatient video EEG recording. Digital analysis of the EEG was done for spike and seizure detection, which revealed no abnormalities. BACKGROUND: The posterior background rhythm is 9 to 10 Hz. The background rhythm attenuates with eye opening and enhances with eye closure. HYPERVENTILATION: Not performed. PHOTIC STIMULATION: Bioccipital symmetric driving responses observed. SLEEP: Drowsiness and sleep are observed. EEG DIAGNOSIS: Normal awake, drowsy, and sleep EEG. Job ID: [id number]
[2020-07-06 11:48] VITALS: BP 136/79
[2020-07-06] MEDS ORDERED: Gabapentin 100 MG CAP PO SCH (12:00)
--- NOTE | 2020-07-06 12:26 | PDOC.NEUPN ---
- Subjective Encounter Date: 07/06/20 Subjective: Patient seen this morning. She is doing well. MRI Brain and EEG were negative - Objective Vital Signs & Weight: Vital Signs (12 hours) Temp Pulse Resp BP Pulse Ox 07/06/20 11:16 69 136/79 07/06/20 07:23 98 F 68 16 121/65 97 07/06/20 04:45 97.7 F 59 L 18 118/67 97 Weight Weight 186 lb 11.2 oz I&O: 07/05/20 07/06/20 07/07/20 06:59 06:59 06:59 Intake Total 1332 3260 Output Total 1000 1999 Balance 332 1260 Result Diagrams: 07/06/20 04:22 07/06/20 04:22 Radiology Reviewed by me: Yes EKG Reviewed by me: Yes ROS - Review of Systems Constitutional: denies: fever, chills, sweats, weakness, malaise, other Eyes: denies: pain, vision change, conjunctivae inflammation, eyelid inflammation, redness, other ENT: denies: ear pain, ear discharge, nose pain, nose discharge, nose congestion, mouth pain, mouth swelling, throat pain, throat swelling, other Respiratory: denies: cough, dry, shortness of breath, hemoptysis, SOB with excertion, pleuritic pain, sputum, wheezing, other Cardiovascular: denies: no pertinent history, AFIB, CAD, CHF, HTN, ID, Syncope, Hyperlipidemia, Mitral valve stenosis, Aortic stenosis, Valve insufficiency, Pulmonary hypertension, Other Gastrointestinal: denies: nausea, vomiting, abdominal pain, diarrhea, constipation, melena, hematochezia, other Genitourinary: denies: dysuria, frequency, incontinence, hematuria, retention, other Musculoskeletal: denies: neck pain, shoulder pain, arm pain, back pain, hand pain, leg pain, foot pain, other Skin: denies: rash, lesions, froilan, bruising, other Neurological: denies: weakness, numbness, incoordination, change in speech, confusion, seizures, other - Medication Medications: Active Medications Generic Name Dose Route Start Last Admin Trade Name Freq PRN Reason Stop Dose Admin Acetaminophen 650 mg 07/04/20 17:58 07/05/20 17:43 Acetaminophen 325 Mg Tab PO 650 mg Q4H PRN Administration Headache/Fever/Mild Pain (1-3) Aspirin 81 mg 07/05/20 09:00 07/06/20 08:28 Aspirin 81 Mg Enteric Coated Tablet PO 81 mg DAILY IBETH Administration Atorvastatin Calcium 30 mg 07/05/20 21:00 07/05/20 19:52 Atorvastatin Calcium 20 Mg Tab PO 30 mg HS IBETH Administration Cyclobenzaprine HCl 10 mg 07/05/20 21:00 07/05/20 19:52 Cyclobenzaprine 10 Mg Tab PO 10 mg HS IBETH Administration Famotidine 20 mg 07/04/20 21:00 07/06/20 08:27 Famotidine 20 Mg Tab PO 20 mg BID IBETH Administration Gabapentin 200 mg 07/05/20 21:00 07/05/20 19:52 Gabapentin 100 Mg Cap PO 200 mg HS IBETH Administration Gabapentin 100 mg 07/05/20 09:00 07/06/20 08:28 Gabapentin 100 Mg Cap PO 100 mg QAM IBETH Administration Sodium Chloride 1,000 mls @ 100 mls/hr 07/04/20 17:45 07/06/20 04:43 Normal Saline 0.9% IV 1,000 mls .Q10H IBETH Administration Levothyroxine Sodium 100 mcg 07/06/20 06:00 07/06/20 04:43 Levothyroxine Sodium 100 Mcg Tab PO 100 mcg 0600 IBETH Administration Lisinopril 5 mg 07/05/20 09:00 07/06/20 08:26 Lisinopril 10 Mg Tab PO 5 mg QAM IBETH Administration Metformin HCl 500 mg 07/05/20 08:00 07/06/20 08:26 Metformin 500 Mg Tab PO 500 mg BID-WM IBETH Administration - Exam General Appearance: awake alert Eye: PERRL, anicteric sclera ENT: normocephalic atraumatic Neck: supple Respiratory: CTAB Cardiovascular: RRR Gastrointestinal: soft Extremities: no cyanosis Skin: normal turgor Neurological: CN's grossly intact, normal sensation to touch, no weakness, no focal deficits Musculoskeletal: normal tone, normal strength, no muscle wasting PSYCH: normal affect, normal behavior, A&O x 3 Results - Labs Result Diagrams: 07/06/20 04:22 07/06/20 04:22 Lab results: WBC 5.4 thou/uL (4.8-10.8) 07/06/20 04:22 Hgb 11.7 g/dL (12.0-16.0) L 07/06/20 04:22 Hct 35.1 % (36.0-47.0) L 07/06/20 04:22 MCV 90.1 fL (78.0-98.0) 07/06/20 04:22 Plt Count 212 thou/uL (130-400) 07/06/20 04:22 Neutrophils % 43.6 % (42.0-75.0) 07/06/20 04:22 Sodium 143 mmol/L (136-145) 07/06/20 04:22 Potassium 4.1 mmol/L (3.5-5.1) 07/06/20 04:22 Chloride 111 mmol/L (98-107) H 07/06/20 04:22 Carbon Dioxide 21 mmol/L (22-29) L 07/06/20 04:22 BUN 11 mg/dL (9.8-20.1) 07/06/20 04:22 Creatinine 0.80 mg/dL (0.6-1.1) 07/06/20 04:22 Glucose 123 mg/dL (70-105) H 07/06/20 04:22 Calcium 8.0 mg/dL (7.8-10.44) 07/06/20 04:22 Troponin I 0.016 ng/mL (< 0.028) 07/04/20 18:42 - Radiology Interpretation CT scan - head Additional Comment: Head CT negative for acute intracranial pathology. PN A/P (1) Syncopal episodes Code(s): R55 - SYNCOPE AND COLLAPSE Status: Acute (2) Depression Code(s): F32.9 - MAJOR DEPRESSIVE DISORDER, SINGLE EPISODE, UNSPECIFIED Status: Chronic (3) Psychogenic nonepileptic seizure Code(s): F44.5 - CONVERSION DISORDER WITH SEIZURES OR CONVULSIONS Status: Chronic (4) Altered mental status Code(s): R41.82 - ALTERED MENTAL STATUS, UNSPECIFIED Status: Acute (5) Diabetes mellitus type 2 in obese Code(s): E11.69 - TYPE 2 DIABETES MELLITUS WITH OTHER SPECIFIED COMPLICATION; E66.9 - OBESITY, UNSPECIFIED Status: Chronic (6) Dyslipidemia Code(s): E78.5 - HYPERLIPIDEMIA, UNSPECIFIED Status: Chronic (7) Hypertension Code(s): I10 - ESSENTIAL (PRIMARY) HYPERTENSION Status: Chronic (8) Hypothyroidism Code(s): E03.9 - HYPOTHYROIDISM, UNSPECIFIED Status: Chronic - Plan 55 year old consulted for syncopal episodes about concern for seizure like activity. History is inconsistent with seizures. Prior diagnosis of PNES. EEG reviewed and was negative for seizure activity. MRI Brain reviewed and was negative for acute intracranial process. Continue home medications. Continue medical management per primary team. No need for anticonvulsant. Observe seizure precautions. No further recommendations from neurology perspective. Case discussed with Dr. Duron.
--- NOTE | 2020-07-08 02:23 | DIS ---
DATE OF ADMISSION: 07/04/2020 DATE OF DISCHARGE: 07/06/2020 DISCHARGE DIAGNOSES: 1. Psychogenic seizures. 2. Syncope. 3. Depression. 4. Diabetes mellitus. 5. Dyslipidemia. 6. Hypertension. 7. Hypothyroidism. HISTORY: This patient is a 55-year-old female, who has a history of psychogenic seizures, who presented to the hospital, having multiple syncopal episodes. The patient has reported in the past she had these related to a bee sting. On this occasion, she reports she was stung by a wasp and subsequently started having syncopal episodes. She presented to her PCPs office, who sent her to the hospital when she had a syncopal episode in her parking lot. The patient was subsequently placed on observation. HOSPITAL COURSE: The patient was placed on telemetry. Labs were generally unremarkable. Brain MRI and brain CT were unremarkable. She was seen by Neurology who performed an EEG, showed no signs of epileptiform activity. Echocardiogram was unremarkable. The patient subsequently was in the bathroom. According to nursing, the patient pulled the cord for help. They found the patient on the floor. They were able to get the patient fully awake at that point. We repeated a head CT, which again was unremarkable. The patient indicated she had no memory of the episode in the bathroom, so it is somewhat unclear how she was able to pull the cord for help. Nonetheless, the patient was reassured that ultimately this would be a self-limited issue and that she would be fine and was stable for discharge to home. DISCHARGE EXAMINATION: VITAL SIGNS: On day of discharge, temperature is 98.0, pulse 68, respirations 16, O2 saturation 97% on room air, BP 121/65. GENERAL: She is awake and alert. HEART: Regular. LUNGS: Clear. ABDOMEN: Benign. DISPOSITION: The patient is discharged home. ACTIVITY: As tolerated. DIET: She will be on a heart healthy diet. MEDICATIONS: Will be unchanged. The patient specifically requested a refill on her Flexeril because she had not been able to get a refill from her PCP. She indicated this was the thing that helped her syncope and seizures. She was found in the [facility], although there was no history there. Therefore, I gave her one prescription for 10 tablets in order for her to be able to follow up with her PCP. She should follow up with her PCP, Veronica Boggs. She can return to the hospital as she needs to. Job ID: [id number]
== END 2020-07-06 12:43 | disposition home or self-care (01) ==
LOC: 2SW 14:46
PROVIDERS: ADMIT Internal Medicine; ATTEND Internal Medicine
DX: R55 Syncope and collapse (principal); F44.5 Conversion disorder with seizures or convulsions; F32.9 Major depressive disorder, single episode, unspecified; E11.40 Type 2 diabetes mellitus with diabetic neuropathy, unspecified; E78.5 Hyperlipidemia, unspecified; I10 Essential (primary) hypertension; E03.9 Hypothyroidism, unspecified; G89.29 Other chronic pain; M54.5 Low back pain; G62.9 Polyneuropathy, unspecified; G47.30 Sleep apnea, unspecified; F41.9 Anxiety disorder, unspecified; E66.9 Obesity, unspecified; Z68.33 Body mass index [BMI] 33.0-33.9, adult; Z91.5 Personal history of self-harm; Z79.82 Long term (current) use of aspirin; Z79.84 Long term (current) use of oral hypoglycemic drugs; Z79.899 Other long term (current) drug therapy; Z91.030 Bee allergy status; Z91.038 Other insect allergy status; Z91.041 Radiographic dye allergy status; Z20.828 Contact with and (suspected) exposure to other viral communicable diseases
CPT/HCPCS: 36415; 70450; 70551; 80048; 80306; 85025; 87635; 93306; 95712; 95819; 95957; 96360; 96361; G0378; U0003

== ENCOUNTER 2021-03-03 20:18 | Observation (INO) | payer SELFPAY ==
[2021-03-03] MEDS ORDERED: Dextrose 50% Abboject 50 ML SYRINGE SLOW IVP PRN (20:48)
[2021-03-03] MEDS ORDERED: Dextrose 5% in Water 1,000 ML IV PRN (20:48)
[2021-03-03] MEDS ORDERED: HumaLOG 300 UNITS/3 ML VIAL SC PRN (20:48)
[2021-03-03] MEDS ORDERED: hydrALAZINE 20 MG/ML VIAL SLOW IVP PRN ×2 (20:48→21:21)
[2021-03-03] MEDS ORDERED: Acetaminophen 325 MG TAB PO PRN (20:48)
[2021-03-03] MEDS ORDERED: Ondansetron PF 4 MG/2 ML Vial IVP PRN (20:48)
[2021-03-03] MEDS ORDERED: Zolpidem Tartrate 5 MG TAB PO PRN (20:48)
[2021-03-03] MEDS ORDERED: Labetalol HCl 100 MG/20 ML VIAL SLOW IVP PRN (20:48)
[2021-03-03] MEDS ORDERED: Bisacodyl 10 MG SUPP PR PRN (20:48)
[2021-03-03] MEDS ORDERED: Morphine 4 MG/ML VIAL SLOW IVP PRN (21:27)
[2021-03-03] MEDS: HYDROcodone/Acetaminophen 5/325 mg Tablet PO PRN (22:20)
[2021-03-03] MEDS: Lactated Ringer's 1,000 ML IV SCH (22:20)
[2021-03-03 23:06] VITALS: BMI 33.9
[2021-03-04] MEDS: HYDROcodone/Acetaminophen 5/325 mg Tablet PO PRN ×2 (05:48→09:55)
[2021-03-04 06:11] LABS: #Basophils 0.1 thou/uL (0.0-0.2); #Eosinphils 0.1 thou/uL (0.0-0.7); #Lymphocytes 2.9 thou/uL (1.20-3.40); #Monocytes 0.4 thou/uL (0.11-0.59); %Basophils 0.9 % (0.0-1.0); %Eosinophils 2.2 % (0.0-10.0); %Lymphocytes 44.7 % (21.0-51.0); %Monocytes 5.7 % (0.0-10.0); %Neutrophils 46.5 % (42.0-75.0); Hemoglobin 12.8 g/dL (12.0-16.0); Mean Corpuscular HGB CONC 34.6 g/dL (32.0-36.0); Mean Corpuscular Hemoglobin 32.4 pg (27.0-31.0); Mean Corpuscular Volume 93.8 fL (78.0-98.0); Mean Platelet Volume 6.7 fL (7.4-10.4); Platelet Count 188 thou/uL (130-400); RBC Distribution Width 12.3 % (11.5-14.5); Red Blood Cell (RBC) Count 3.95 mill/uL (4.20-5.40); White Blood Cell (WBC) Count 6.5 thou/uL (4.8-10.8)
[2021-03-04 06:34] LABS: ALT (SGPT) 11 U/L (8-55); AST (SGOT) 12 U/L (5-34); Albumin 3.6 g/dL (3.5-5.0); Alkaline Phosphatase 83 U/L (40-110); Anion Gap 13 mmol/L (10-20); BUN (Urea Nitrogen) 7 mg/dL (9.8-20.1); Bilirubin, Total 0.3 mg/dL (0.2-1.2); Calc. Creatinine Clearance 110 mL/min (70-130); Calcium 9.2 mg/dL (7.8-10.44); Carbon Dioxide 24 mmol/L (22-29); Cardiac Risk 5.7 (Less than 4.5); Chloride 108 mmol/L (98-107); Cholesterol 153 mg/dl (< 200 Desired); Globulin 2.5 g/dL (2.4-3.5); Glucose 148 mg/dL (70-105); HDL Cholesterol 27 mg/dL (>60 Neg Risk); LDL Cholesterol, Calculated 65 mg/dL; Protein, Total 6.1 g/dL (6.0-8.3); Sodium 141 mmol/L (136-145); Triglycerides 307 mg/dL (Less than 150)
[2021-03-04] MEDS ORDERED: Lisinopril 10 MG TAB PO SCH (09:00)
[2021-03-04] MEDS ORDERED: Cyanocobalamin (Vitamin B-12) 1,000 MCG TAB PO SCH (09:00)
[2021-03-04] MEDS ORDERED: Enoxaparin Sodium 30 MG/0.3 ML SYRINGE SC SCH (09:00)
[2021-03-04] MEDS ORDERED: Aspirin 81 mg Enteric Coated Tablet PO SCH (09:00)
[2021-03-04] MEDS ORDERED: Nicotine 21 MG PATCH TD SCH (09:00)
[2021-03-04] MEDS: Lactated Ringer's 1,000 ML IV SCH (09:58)
[2021-03-04 11:12] VITALS: BP 156/71; TEMP 98.1
[2021-03-04 11:38] LABS: SARS-CoV-2 PCR NAA for Saliva Not Detected (NotDetected)
[2021-03-04] MEDS ORDERED: Atorvastatin Calcium 20 MG TAB PO SCH (21:00)
[2021-03-04] MEDS ORDERED: Mirtazapine 15 MG Soltab PO SCH (21:00)
[2021-03-05] MEDS ORDERED: Levothyroxine Sodium 125 MCG TAB PO SCH (06:00)
== END 2021-03-04 13:51 | disposition home or self-care (01) ==
LOC: 2SE 20:18 → INTOOBSV 20:18
PROVIDERS: ADMIT Internal Medicine; ATTEND Internal Medicine
DX: G45.9 Transient cerebral ischemic attack, unspecified (principal); G92 Toxic encephalopathy; E11.9 Type 2 diabetes mellitus without complications; E78.5 Hyperlipidemia, unspecified; I10 Essential (primary) hypertension; E03.9 Hypothyroidism, unspecified; F17.210 Nicotine dependence, cigarettes, uncomplicated; G89.29 Other chronic pain; M54.5 Low back pain; F44.5 Conversion disorder with seizures or convulsions; E66.9 Obesity, unspecified; Z68.33 Body mass index [BMI] 33.0-33.9, adult; Z79.82 Long term (current) use of aspirin; Z79.84 Long term (current) use of oral hypoglycemic drugs; Z79.899 Other long term (current) drug therapy; Z91.030 Bee allergy status; Z91.041 Radiographic dye allergy status; Z20.822 Contact with and (suspected) exposure to COVID-19
CPT/HCPCS: 36415; 36416; 70551; 80053; 80061; 84439; 85025; 87635; 96372; G0378; J1650; J1815; U0003; U0005

== ENCOUNTER 2021-09-03 12:03 | Inpatient (IN) | payer SELFPAY ==
[~2021-09-03 12:03] MED LIST: Iopamidol-370 76% 500 ML 1 ML ONE
[2021-09-03 12:43] LABS: #Basophils 0.1 thou/uL (0.0-0.2); #Eosinphils 0.1 thou/uL (0.0-0.7); #Lymphocytes 1.1 thou/uL (1.20-3.40); #Monocytes 0.3 thou/uL (0.11-0.59); #Neutrophils 7.4 thou/uL (1.40-6.50); %Basophils 0.6 % (0.0-1.0); %Eosinophils 0.9 % (0.0-10.0); %Lymphocytes 12.7 % (21.0-51.0); %Monocytes 3.8 % (0.0-10.0); %Neutrophils 82.1 % (42.0-75.0); Hemoglobin 13.2 g/dL (12.0-16.0); Mean Corpuscular HGB CONC 35.3 g/dL (32.0-36.0); Mean Corpuscular Hemoglobin 34.8 pg (27.0-31.0); Mean Corpuscular Volume 98.4 fL (78.0-98.0); Mean Platelet Volume 6.1 fL (7.4-10.4); Platelet Count 236 thou/uL (130-400); RBC Distribution Width 13.4 % (11.5-14.5); Red Blood Cell (RBC) Count 3.79 mill/uL (4.20-5.40)
[2021-09-03 12:56] LABS: PTT 23.4 sec (22.9-36.1); Prothrombin Time 13.4 sec (12.0-14.7)
[2021-09-03 13:03] LABS: ALT (SGPT) 16 U/L (8-55); AST (SGOT) 17 U/L (5-34); Alkaline Phosphatase 98 U/L (40-110); Anion Gap 18 mmol/L (10-20); BUN (Urea Nitrogen) 9 mg/dL (9.8-20.1); Bilirubin, Total 0.4 mg/dL (0.2-1.2); CK (CPK) 41 U/L (29-168); Calc. Creatinine Clearance 0 mL/min (70-130); Calcium 9.2 mg/dL (7.8-10.44); Carbon Dioxide 21 mmol/L (22-29); Chloride 104 mmol/L (98-107); Globulin 2.5 g/dL (2.4-3.5); Glucose 126 mg/dL (70-105); Potassium 4.2 mmol/L (3.5-5.1); Protein, Total 6.5 g/dL (6.0-8.3); Sodium 139 mmol/L (136-145)
[2021-09-03] MEDS ORDERED: Mag-Al 1200 mg/1200 mg/30 ML UDCUP PO PRN (14:20)
[2021-09-03] MEDS ORDERED: Labetalol HCl 100 MG/20 ML VIAL SLOW IVP PRN (14:20)
[2021-09-03] MEDS ORDERED: Milk Of Magnesia 30 ML UDCUP PO PRN (14:20)
[2021-09-03] MEDS ORDERED: Communication Order-Pharmacy FS ONE (14:20)
[2021-09-03] MEDS ORDERED: hydrALAZINE 20 MG/ML VIAL SLOW IVP PRN (14:20)
[2021-09-03 14:41] LABS: SARS-CoV-2 NAA Rapid Test Not Detected (NotDetected)
[2021-09-03] MEDS ORDERED: Sodium Chloride 0.9% 1,000 ML IV SCH (20:15)
[2021-09-03 20:24] VITALS: BMI 30.7
[2021-09-03] MEDS: Atorvastatin Calcium 40 MG TAB PO SCH (21:20)
[2021-09-04] MEDS: Acetaminophen 325 MG TAB PO PRN (02:10)
[2021-09-04 11:48] LABS: #Basophils 0.1 thou/uL (0.0-0.2); #Eosinphils 0.1 thou/uL (0.0-0.7); #Lymphocytes 3.6 thou/uL (1.20-3.40); #Monocytes 0.5 thou/uL (0.11-0.59); #Neutrophils 4.8 thou/uL (1.40-6.50); %Basophils 0.9 % (0.0-1.0); %Eosinophils 0.8 % (0.0-10.0); %Lymphocytes 39.8 % (21.0-51.0); %Monocytes 5.2 % (0.0-10.0); %Neutrophils 53.4 % (42.0-75.0); Hemoglobin 14.3 g/dL (12.0-16.0); Mean Corpuscular HGB CONC 35.5 g/dL (32.0-36.0); Mean Corpuscular Hemoglobin 34.5 pg (27.0-31.0); Mean Corpuscular Volume 97.2 fL (78.0-98.0); Mean Platelet Volume 5.9 fL (7.4-10.4); Platelet Count 260 thou/uL (130-400); RBC Distribution Width 13.4 % (11.5-14.5); Red Blood Cell (RBC) Count 4.14 mill/uL (4.20-5.40); White Blood Cell (WBC) Count 9.1 thou/uL (4.8-10.8)
[2021-09-04] MEDS ORDERED: Enoxaparin Sodium 40 MG/0.4 ML SYRINGE SC SCH (14:00)
[2021-09-04] MEDS: Aspirin 325 mg Enteric Coated Tablet PO SCH (14:26)
[2021-09-04 15:13] LABS: Anion Gap 14 mmol/L (10-20); BUN (Urea Nitrogen) 9 mg/dL (9.8-20.1); Calc. Creatinine Clearance 101 mL/min (70-130); Calcium 9.6 mg/dL (7.8-10.44); Carbon Dioxide 23 mmol/L (22-29); Cardiac Risk 7.8 (Less than 4.5); Chloride 105 mmol/L (98-107); Cholesterol 243 mg/dl (< 200 Desired); Glucose 164 mg/dL (70-105); HDL Cholesterol 31 mg/dL (>60 Neg Risk); LDL Cholesterol, Calculated 142 mg/dL; Potassium 3.8 mmol/L (3.5-5.1); Sodium 138 mmol/L (136-145); Triglycerides 349 mg/dL (Less than 150)
[2021-09-04] MEDS: Atorvastatin Calcium 40 MG TAB PO SCH (20:57)
[2021-09-04 23:51] LABS: Bilirubin Negative (Negative); Blood, Urine Negative (Negative); Clarity Clear (Clear); Glucose, Urine (Dipstick) Normal (Negative); Ketone, Urine Negative (Negative); Leukocyte Negative Leu/uL (Negative); Nitrite Negative (Negative); Protein, Urine (Dipstick) Negative (Neg-Trace); RBC/HPF 0-3 HPF (0-3); Specific Gravity, Urine 1.009 (1.002-1.036); Squamous Epithelial 0-3 HPF (0-3); Urobilinogen Normal mg/dL (Less than 2); WBC/HPF 0-3 HPF (0-3); pH, Urine 5.5 (5.0-9.0)
[2021-09-04 23:52] LABS: Bacteria/HPF 1+ HPF (None Seen)
[2021-09-05] MEDS ORDERED: Lorazepam 2 MG/ML VIAL ONE ×2 (07:28→07:33)
[2021-09-05] MEDS: Aspirin 325 mg Enteric Coated Tablet PO SCH (09:19)
[2021-09-05] MEDS: Enoxaparin Sodium 40 MG/0.4 ML SYRINGE SC SCH (09:19)
[2021-09-05] MEDS: Acetaminophen 325 MG TAB PO PRN (10:51)
[2021-09-05 15:08] LABS: #Basophils 0.1 thou/uL (0.0-0.2); #Eosinphils 0.1 thou/uL (0.0-0.7); #Lymphocytes 2.9 thou/uL (1.20-3.40); #Monocytes 0.4 thou/uL (0.11-0.59); #Neutrophils 3.8 thou/uL (1.40-6.50); %Basophils 1.3 % (0.0-1.0); %Eosinophils 1.1 % (0.0-10.0); %Lymphocytes 39.6 % (21.0-51.0); %Monocytes 5.9 % (0.0-10.0); %Neutrophils 52.1 % (42.0-75.0); Hemoglobin 13.3 g/dL (12.0-16.0); Mean Corpuscular HGB CONC 36.1 g/dL (32.0-36.0); Mean Corpuscular Hemoglobin 34.7 pg (27.0-31.0); Mean Corpuscular Volume 96.1 fL (78.0-98.0); Mean Platelet Volume 5.9 fL (7.4-10.4); Platelet Count 244 thou/uL (130-400); Red Blood Cell (RBC) Count 3.84 mill/uL (4.20-5.40); White Blood Cell (WBC) Count 7.2 thou/uL (4.8-10.8)
[2021-09-05 15:20] LABS: PTT 27.3 sec (22.9-36.1)
[2021-09-05 15:23] LABS: Anion Gap 15 mmol/L (10-20); BUN (Urea Nitrogen) 12 mg/dL (9.8-20.1); Calc. Creatinine Clearance 96 mL/min (70-130); Calcium 9.3 mg/dL (7.8-10.44); Carbon Dioxide 22 mmol/L (22-29); Chloride 105 mmol/L (98-107); Glucose 143 mg/dL (70-105); Potassium 3.6 mmol/L (3.5-5.1); Sodium 138 mmol/L (136-145)
[2021-09-05] MEDS: Atorvastatin Calcium 40 MG TAB PO SCH (20:42)
[2021-09-05] MEDS ORDERED: traMADol HCl 50 MG TAB PO SCH (21:03)
[2021-09-06] MEDS: Enoxaparin Sodium 40 MG/0.4 ML SYRINGE SC SCH (08:02)
[2021-09-06] MEDS: Aspirin 325 mg Enteric Coated Tablet PO SCH (08:02)
[2021-09-06] MEDS: Atorvastatin Calcium 40 MG TAB PO SCH (21:18)
[2021-09-07] MEDS: Enoxaparin Sodium 40 MG/0.4 ML SYRINGE SC SCH (09:08)
[2021-09-07] MEDS: Aspirin 325 mg Enteric Coated Tablet PO SCH (09:08)
[2021-09-07 11:26] VITALS: BP 144/63; TEMP 98.2
[2021-09-07] MEDS ORDERED: Cyclobenzaprine 10 MG TAB PO PRN (12:42)
[2021-09-07] MEDS ORDERED: Levothyroxine Sodium 100 MCG TAB PO SCH (12:45)
[2021-09-08] MEDS ORDERED: Levothyroxine Sodium 100 MCG TAB PO SCH (06:00)
== END 2021-09-07 16:10 | disposition home or self-care (01) | DRG 69 ==
LOC: ERS 12:03 → ERHOLD 13:01 → CCU 20:08 → NEURO 09-04 13:37 → CCU 09-05 08:07 → NEURO 09-05 14:07
PROVIDERS: ADMIT Hospitalist; ATTEND Internal Medicine
DX: G45.9 Transient cerebral ischemic attack, unspecified (principal); Z20.822 Contact with and (suspected) exposure to COVID-19; Z92.82 Status post administration of tPA (rtPA) in a different facility within the last 24 hours prior to admission to current facility; R45.851 Suicidal ideations; F32.A Depression, unspecified; G40.909 Epilepsy, unspecified, not intractable, without status epilepticus; E03.9 Hypothyroidism, unspecified; E11.9 Type 2 diabetes mellitus without complications; E66.9 Obesity, unspecified; I67.2 Cerebral atherosclerosis; F12.10 Cannabis abuse, uncomplicated; Z88.8 Allergy status to other drugs, medicaments and biological substances; Z91.030 Bee allergy status; Z91.041 Radiographic dye allergy status; Z90.710 Acquired absence of both cervix and uterus; Z85.3 Personal history of malignant neoplasm of breast; Z85.41 Personal history of malignant neoplasm of cervix uteri; Z90.13 Acquired absence of bilateral breasts and nipples; Z79.899 Other long term (current) drug therapy; Z79.890 Hormone replacement therapy; Z79.84 Long term (current) use of oral hypoglycemic drugs; Z79.82 Long term (current) use of aspirin; Z68.31 Body mass index [BMI] 31.0-31.9, adult
CPT/HCPCS: 36415; 36416; 70450; 70496; 70498; 70551; 72125; 80048; 80061; 80185; 80307; 81001; 82550; 85025; 85610; 85730; 93005; 93010; 93306; 95712; 95819; 95957; 99285; J1650; J2060; J7050; Q9967; U0002